=== PATIENT | female | born 1960 ===

== ENCOUNTER 2024-10-02 07:55 | Day surgery (SDC) | payer OTHER ==
[2024-10-01 10:53] VITALS: BP 150/78
[~2024-10-02] VITALS: Ht 175.3 cm; Wt 70.8 kg
[~2024-10-02 07:55] MED LIST: CARAFATE1 GM PO; OMEPRAZOLE-BIC1 EAC1 PO; PEPCID40 MG PO
[2024-10-02] MEDS ORDERED: CLINDAMYCIN PHOSPHATE 150 MG/ML (900mg) ONE (11:44)
[2024-10-02] MEDS ORDERED: hydrALAZINE HCL 20 MG VIAL ONE (16:08)
== END 2024-10-02 20:15 | disposition home or self-care (01) ==
LOC: CIR.AMB 07:55
PROVIDERS: ATTEND Orthopaedic Surgery Hand Surgery
DX: S52.532A Colles' fracture of left radius, initial encounter for closed fracture (principal); M24.532 Contracture, left wrist; Z88.0 Allergy status to penicillin
CPT/HCPCS: 25609; 25280; 25118; L8699